=== PATIENT | female | born 1990 | race Two or more races ===

== ENCOUNTER 2021-11-30 18:14 | Emergency (ER) | payer BC ==
[~2021-11-30] VITALS: Ht 165.1 cm; Wt 68.0 kg
--- NOTE | 2021-11-30 18:54 | NUR ---
Dr. Steiner at bedside for MSE.
[2021-11-30 19:35] LABS: HEMATOCRIT 37.3 % (31.2-41.9); PLATELET COUNT (AUTO) 215 K/uL (179-408)
[2021-11-30 19:42] LABS: BILIRUBIN,DIRECT 0.1 mg/dL (0.0-0.2); BILIRUBIN,TOTAL 0.5 mg/dL (0.2-1.0); CREATININE 0.9 mg/dL (0.6-1.3); POTASSIUM 3.7 mmol/L (3.5-5.1); TOTAL PROTEIN, SERUM 7.7 g/dL (6.4-8.2)
[2021-11-30] MEDS ORDERED: IBUPROFEN 800 MG TABLET ONE (20:25)
[2021-11-30] MEDS ORDERED: IBUPROFEN 800 MG TABLET PO ONE (20:30)
[2021-11-30 22:04] VITALS: BP 124/79
--- NOTE | 2021-11-30 22:04 | NUR ---
Patient discharged to home in stable condition. Written and verbal after care instructions given. Patient verbalizes understanding of instructions. Stressed follow up or return to ER for worsening s/s. Patient out of ER with steady gait, no acute signs of distress, VSS, all belongings taken, provided with labs and ultrasound results.
== END 2021-11-30 22:04 | disposition home or self-care (01) ==
LOC: ER 19:10
DX: R10.2 Pelvic and perineal pain (principal); N93.9 Abnormal uterine and vaginal bleeding, unspecified
CPT/HCPCS: 36415; 76856; 85025; 85730; 86850; 86900; 86901; A4663